=== PATIENT | female | born 1965 | race American Indian/Alaskan Native ===

== ENCOUNTER 2017-10-25 15:42 | Emergency (ER) | payer BC ==
[2017-10-25 15:57] VITALS: BP 108/67; PULSE 71; RESP 16; TEMP 98.2; O2SAT 100
--- NOTE | 2017-10-25 16:14 | ED PDOC ---
Upper Extremity Pain/Injury Time Seen by Provider: 10/25/17 16:03 Chief Complaint (Nursing): Upper Extremity Problem/Injury Chief Complaint (Provider): wrist pain History Per: Patient History/Exam Limitations: no limitations Onset/Duration Of Symptoms: Days (x 1) Current Symptoms Are (Timing): Still Present Additional Complaint(s): Christie More is a 52-year-old right hand dominant female who presents to the emergency department for evaluation of right wrist pain after sustaining a fall today. Patient states that she slipped and fell down a flight of stairs at home. She dipak side of her head on the wall but did not sustain LOC. She states she fell onto her outstretched right arm. There was no loss of consciousness. She denies any headache, nausea, vomiting, or dizziness upon arrival but does have moderate right wrist pain. PMD: Dr. Sandoval in [place] Past Medical History Reviewed: Historical Data, Nursing Documentation, Vital Signs Vital Signs: Last Vital Signs Temp 98.2 F 10/25/17 15:57 Pulse 71 10/25/17 15:57 Resp 16 10/25/17 15:57 BP 108/67 10/25/17 15:57 Pulse Ox 100 10/25/17 15:57 - Medical History PMH: No Chronic Diseases - Surgical History Surgical History: No Surg Hx - Family History Family History: States: No Known Family Hx - Living Arrangements Living Arrangements: With Family - Social History Current smoker - smoking cessation education provided: No Alcohol: Occasional Drugs: Denies - Allergies Allergies/Adverse Reactions: Allergies Allergy/AdvReac Type Severity Reaction Status Date / Time No Known Allergies Allergy Verified 10/25/17 16:01 Review of Systems ROS Statement: Except As Marked, All Systems Reviewed And Found Negative Gastrointestinal: Negative for: Nausea, Vomiting Musculoskeletal: Positive for: Other (Right wrist pain s/p fall) Neurological: Positive for: Other (minor head injury due to fall, no LOC, denies headache upon arrival). Negative for: Headache, Dizziness Physical Exam - Reviewed Nursing Documentation Reviewed: Yes Vital Signs Reviewed: Yes - Physical Exam Appears: Positive for: Well, Non-toxic, No Acute Distress Head Exam: Positive for: ATRAUMATIC, NORMAL INSPECTION, NORMOCEPHALIC Skin: Positive for: Normal Color. Negative for: Rash Eye Exam: Positive for: Normal appearance Neck: Positive for: Normal Extremity: Positive for: Tenderness (and decreased ROM to dorsum of right wrist diffusely), Deformity (no bony deformity noted to right wrist), Swelling (right wrist dorsally) Neurologic/Psych: Positive for: Alert, Oriented - ECG O2 Sat by Pulse Oximetry: 100 (RA) Pulse Ox Interpretation: Normal - Other Rad Right wrist x-ray X-Ray: Interpreted by Me, Viewed By Me X-Ray Interpretation: no fx, no dis Medical Decision Making Medical Decision Making: Time: 16:09 Initial Impression: 52 year old female with right wrist injury s/p fall Initial Plan: * Tylenol 975 mg PO * X-Ray Right Wrist Patient is aware of x-ray results, all questions answered. Velcro wrist splint applied. Patient was advised to ice and elevate affected area and was instructed to follow up with orthopedist in 2-3 days. Scribe Attestation: Documented by Elli Olivares, acting as a scribe for Aneta Zhong PA-C Provider Scribe Attestation: All medical record entries made by the Scribe were at my direction and personally dictated by me. I have reviewed the chart and agree that the record accurately reflects my personal performance of the history, physical exam, medical decision making, and the department course for this patient. I have also personally directed, reviewed, and agree with the discharge instructions and disposition. Procedures - Splinting Location: right wrist Pre-Made Type: velcro Pre-Proc Neuro Vasc Exam: normal Post-Proc Neuro Vasc Exam: normal Disposition - Clinical Impression Clinical Impression: Wrist sprain - Patient ED Disposition Is Patient to be Admitted: No Counseled Patient/Family Regarding: Studies Performed, Diagnosis, Need For Followup - Disposition Referrals: Damon Anderson MD [Medical Doctor] - Disposition: Routine/Home Disposition Time: 16:48 Condition: STABLE Additional Instructions: Ice, rest and elevate affected area. Take over the counter tylenol or advil for pain as needed. Follow up with orthopedist for any persistent symptoms. Instructions: Wrist Sprain (ED) Forms: [facility] (French)
--- NOTE | 2017-10-25 19:07 | RAD ---
PROCEDURE: Right Wrist Radiographs. HISTORY: trauma COMPARISON: None. FINDINGS: BONES: No acute fracture or destructive bony lesion identified. JOINTS: Normal. No dislocation. SOFT TISSUES: Normal. OTHER FINDINGS: None. IMPRESSION: Unremarkable right wrist radiographs.
== END 2017-10-25 16:51 | disposition home or self-care (01) ==
LOC: H.ER 15:42
DX: S63.501A Unspecified sprain of right wrist, initial encounter (principal); W10.9XXA Fall (on) (from) unspecified stairs and steps, initial encounter